=== PATIENT | female | born 1985 | race Caucasian/White ===

== ENCOUNTER 2017-11-09 16:24 | Emergency (ER) | payer OTHER ==
[2017-11-09 17:02] VITALS: BP 119/69; PULSE 81; TEMP 98.4; BMI 22.6
--- NOTE | 2017-11-09 17:04 | PDOC ---
Rapid Medical Evaluation Time Seen by Provider: 11/09/17 17:00 Medical Evaluation: Allergies Allergy/AdvReac Type Severity Reaction Status Date / Time No Known Allergies Allergy Verified 11/09/17 16:59 Vital Signs Temp Pulse Resp BP Pulse Ox 98.4 F 81 18 119/69 100 11/09/17 16:59 11/09/17 16:59 11/09/17 16:59 11/09/17 16:59 11/09/17 16:59 11/09/17 17:03 Pt presents to the ED with complaints of: left back back with mild dysuria, pt 6 weeks preg, no u/s done yet, no vag bleed, hx of renal colic On brief exam: vss, mild left cva tenderness Pt ordered for: labs, ua Pt to proceed to the ED Discharge Disposition - Diagnosis 7 weeks gestation of - Discharge Dispostion Disposition: HOME Condition at time of disposition: Stable - Referrals Referrals: STAFF,NOT ON [Primary Care Provider] - - Patient Instructions Printed Discharge Instructions: DI for Hyperemesis Gravidarum Additional Instructions: Please make sure you take your prescription medications as directed. Please follow up with your SENIOR CIVIL ENGINEER within 1 week. If your symptoms get worse or if you develop new symptoms, please return to the emergency department. Print Language: KENYAN - Post Discharge Activity
[2017-11-09 17:25] LABS: BASO % 0.5 % (0-2.0); EOS % 0.7 % (0-4.5); HEMATOCRIT 40.2 % (32.4-45.2); HEMOGLOBIN 13.8 GM/dL (10.7-15.3); LYMPH % 20.4 % (8-40); MCH 28.9 pg (25.7-33.7); MCHC 34.3 g/dl (32.0-36.0); MEAN CELL VOLUME 84.5 fl (80-96); MEAN PLT VOLUME 10.4 fl (7.5-11.1); MONO % 8.7 % (3.8-10.2); NEUT % 69.7 % (42.8-82.8); PLATELET COUNT 168 K/MM3 (134-434); RBC 4.76 M/mm3 (3.60-5.2); RDW 12.9 % (11.6-15.6); WHITE BLOOD COUNT 9.4 K/mm3 (4.0-10.0)
[2017-11-09 17:32] LABS: URINE APPEARANCE CLEAR; URINE BILIRUBIN NEGATIVE (NEGATIVE); URINE BLOOD NEGATIVE (NEGATIVE); URINE COLOR STRAW; URINE GLUCOSE (UA) NEGATIVE (NEGATIVE); URINE KETONE NEGATIVE (NEGATIVE); URINE LEUK ESTERASE NEGATIVE (NEGATIVE); URINE NITRITE NEGATIVE (NEGATIVE); URINE PROTEIN NEGATIVE (NEGATIVE); URINE UROBILINOGEN NEGATIVE mg/dL (0.2-1.0)
[2017-11-09 18:25] LABS: ALBUMIN 3.8 g/dl (3.4-5.0); ANION GAP 8 (8-16); BILIRUBIN,TOTAL 0.8 mg/dL (0.2-1.0); BLOOD UREA NITROGEN 8 mg/dL (7-18); CALCIUM 8.9 mg/dL (8.5-10.1); CHLORIDE 103 mmol/L (98-107); CO2 25 mmol/L (21-32); CREATININE 0.5 mg/dL (0.55-1.02); GLUCOSE,RANDOM 95 mg/dL (74-106); POTASSIUM 3.9 mmol/L (3.5-5.1); SGOT/AST 16 U/L (15-37); SGPT/ALT 34 U/L (12-78); SODIUM 136 mmol/L (136-145); TOT PROT 7.7 g/dl (6.4-8.2)
--- NOTE | 2017-11-09 18:33 | PDOC ---
Attending Attestation - ED Attending Attestation I have performed the following: I have examined & evaluated the patient, The case was reviewed & discussed with the resident, I agree w/resident's findings & plan, Exceptions are as noted - HPI HPI: 11/09/17 18:31 31y F present with complaint of R sided flank pain and nausea. Hx of kideny stones, was seen in urgent care and notified she is and sent to the ED to confirm IUP. no vag bleeding or abodomianl pain, no fever/chills, no vomiting, pt endorses mild nausae. LMP Sep 24 exam reveals soft nontender abdomen mild flank pain w/o cva tenderness vitals nromal will r/o uti will obtain renal US to r/o hydro and trans vag us to confirm IUP tyrlnol for pain 11/09/17 19:24 pt signed out to dr[address] valenzuela to fu with resutls - Physicial Exam PE: 11/09/17 19:24 see above - Medical Decision Making 11/09/17 19:24 see above
[2017-11-09 18:40] LABS: ALK PHOS 63 U/L (45-117)
--- NOTE | 2017-11-09 18:40 | PDOC ---
History of Present Illness - History of Present Illness Initial Comments: 11/09/17 18:39 Ms. Jules is a 31 yo w/ pmh of kidney stones who presents c/o a 3 day history of nausea, right sided flank pain, dysuria, urgency, and frequency. She went to an urgent care today and was diagnosed with a positive - sent here to confirm IUP. LMP . This is a desired . The patient denies chest pain, shortness of breath, headache and dizziness. Denies fever, chills, nausea, vomit, diarrhea and constipation. Allergies: NKDA <Endy Hatch - Last Filed: 11/09/17 18:41> <Manasa Andujar - Last Filed: 11/09/17 20:44> - General Chief Complaint: Pain Stated Complaint: PAIN Time Seen by Provider: 11/09/17 17:00 Past History - Past Medical History COPD: No GI Disorders: Yes (gastritis) Kidney Stones: Yes - Reproductive History Is Patient Now?: Yes (#): 2 Para: 1 - Suicide/Smoking/Psychosocial Hx Smoking History: Never smoked Have you smoked in the past 12 months: No Information on smoking cessation initiated: No Hx Alcohol Use: No Drug/Substance Use Hx: No Substance Use Type: None <Endy Hatch - Last Filed: 11/09/17 18:41> <Manasa Andujar - Last Filed: 11/09/17 20:44> - Past Medical History Allergies/Adverse Reactions: Allergies Allergy/AdvReac Type Severity Reaction Status Date / Time No Known Allergies Allergy Verified 11/09/17 16:59 Home Medications: Ambulatory Orders Omeprazole 20 mg PO DAILY PRN 11/09/17 Vit 93/Iron Fum/Folic [ Formula Tablet] 1 each PO DAILY Review of Systems - Review of Systems Comments:: 11/09/17 18:43 GENERAL/CONSTITUTIONAL: No fever or chills. No weakness. HEAD, EYES, EARS, NOSE AND THROAT: No change in vision. No ear pain or discharge. No sore throat. CARDIOVASCULAR: No chest pain or shortness of breath RESPIRATORY: No cough, wheezing, or hemoptysis. GASTROINTESTINAL: No nausea, vomiting, diarrhea or constipation. GENITOURINARY: Dysuria, frequency, and urgency as described with R flank pain MUSCULOSKELETAL: No joint or muscle swelling or pain. No neck or back pain. SKIN: No rash NEUROLOGIC: No headache, vertigo, loss of consciousness, or change in strength/ sensation. ENDOCRINE: No increased thirst. No abnormal weight change HEMATOLOGIC/LYMPHATIC: No anemia, easy bleeding, or history of blood clots. ALLERGIC/IMMUNOLOGIC: No hives or skin allergy. <Endy Hatch - Last Filed: 11/09/17 18:41> *Physical Exam - Vital Signs Last Vital Signs Temp Pulse Resp BP Pulse Ox 98.4 F 81 18 119/69 100 11/09/17 16:59 11/09/17 16:59 11/09/17 16:59 11/09/17 16:59 11/09/17 16:59 - Physical Exam Comments: 11/09/17 18:44 GENERAL: Awake, alert, and fully oriented, in no acute distress HEAD: No signs of trauma, normocephalic, atraumatic EYES: PERRLA, EOMI, sclera anicteric, conjunctiva clear ENT: Auricles normal inspection, hearing grossly normal, nares patent, oropharynx clear without exudates. Moist mucosa NECK: Normal ROM, supple, no lymphadenopathy, JVD, or masses LUNGS: No distress, speaks full sentences, clear to auscultation bilaterally HEART: Regular rate and rhythm, normal S1 and S2, no murmurs, rubs or gallops, peripheral pulses normal and equal bilaterally. ABDOMEN: Soft, nontender, normoactive bowel sounds. No guarding, no rebound. No masses EXTREMITIES: Normal inspection, Normal range of motion, no edema. No clubbing or cyanosis. NEUROLOGICAL: Cranial nerves II through XII grossly intact. Normal speech, normal gait, no focal sensorimotor deficits SKIN: Warm, Dry, normal turgor, no rashes or lesions noted. <Endy Hatch - Last Filed: 11/09/17 18:41> - Vital Signs Last Vital Signs Temp Pulse Resp BP Pulse Ox 98.4 F 81 18 119/69 100 11/09/17 16:59 11/09/17 16:59 11/09/17 16:59 11/09/17 16:59 11/09/17 16:59 <Manasa Andujar - Last Filed: 11/09/17 20:44> ED Treatment Course - LABORATORY CBC & Chemistry Diagram: 11/09/17 17:10 11/09/17 17:10 - ADDITIONAL ORDERS Additional order review: Laboratory Results 11/09/17 11/09/17 17:10 17:10 Sodium 136 Potassium 3.9 Chloride 103 Carbon Dioxide 25 Anion Gap 8 BUN 8 D Creatinine 0.5 L Creat Clearance w eGFR > 60 Random Glucose 95 Calcium 8.9 Total Bilirubin 0.8 D AST 16 ALT 34 D Total Protein 7.7 Albumin 3.8 Urine Color Straw Urine Appearance Clear Urine pH 5.0 Ur Specific [place] 1.008 Urine Protein Negative Urine Glucose (UA) Negative Urine Ketones Negative Urine Blood Negative Urine Nitrite Negative Urine Bilirubin Negative Urine Urobilinogen Negative Ur Leukocyte Esterase Negative 11/09/17 17:10 RBC 4.76 MCV 84.5 MCHC 34.3 RDW 12.9 MPV 10.4 Neutrophils % 69.7 Lymphocytes % 20.4 D Monocytes % 8.7 Eosinophils % 0.7 D Basophils % 0.5 D <Endy Hatch - Last Filed: 11/09/17 18:41> - LABORATORY CBC & Chemistry Diagram: 11/09/17 17:10 11/09/17 17:10 - ADDITIONAL ORDERS Additional order review: Laboratory Results 11/09/17 11/09/17 17:10 17:10 Sodium 136 Potassium 3.9 Chloride 103 Carbon Dioxide 25 Anion Gap 8 BUN 8 D Creatinine 0.5 L Creat Clearance w eGFR > 60 Random Glucose 95 Calcium 8.9 Total Bilirubin 0.8 D AST 16 ALT 34 D Alkaline Phosphatase 63 Total Protein 7.7 Albumin 3.8 Beta HCG, Quant 95079.8 Urine Color Straw Urine Appearance Clear Urine pH 5.0 Ur Specific [place] 1.008 Urine Protein Negative Urine Glucose (UA) Negative Urine Ketones Negative Urine Blood Negative Urine Nitrite Negative Urine Bilirubin Negative Urine Urobilinogen Negative Ur Leukocyte Esterase Negative 11/09/17 17:10 RBC 4.76 MCV 84.5 MCHC 34.3 RDW 12.9 MPV 10.4 Neutrophils % 69.7 Lymphocytes % 20.4 D Monocytes % 8.7 Eosinophils % 0.7 D Basophils % 0.5 D - Medications Given in the ED: ED Medications Discontinued Medications Generic Name Dose Route Start Last Admin Trade Name Freq PRN Reason Stop Dose Admin Acetaminophen 650 mg 11/09/17 18:48 11/09/17 19:59 Tylenol - PO 11/09/17 18:49 650 mg ONCE ONE Administration <Manasa Andujar - Last Filed: 11/09/17 20:44> Medical Decision Making - Medical Decision Making 11/09/17 18:45 Patient presents for confirmation of IUP. Transvaginal US ordered. 11/09/17 19:04 Patient signed out to Dr. Benítez for further care. <Endy Hatch - Last Filed: 11/09/17 18:41> *DC/Admit/Observation/Transfer <Endy Hatch - Last Filed: 11/09/17 18:41> - Discharge Dispostion Admit: No <Manasa Andujar - Last Filed: 11/09/17 20:44> Diagnosis at time of Disposition: 7 weeks gestation of - Discharge Dispostion Disposition: HOME Condition at time of disposition: Stable - Referrals Referrals: STAFF,NOT ON [Primary Care Provider] - - Patient Instructions Printed Discharge Instructions: DI for Hyperemesis Gravidarum - Post Discharge Activity
[2017-11-09] MEDS ORDERED: ACETAMINOPHEN 325 MG TABLET (FP) PO ONE (18:48)
[2017-11-09] MEDS ORDERED: ACETAMINOPHEN 325 MG TABLET (FP) ONE ×2 (19:00→19:01)
--- NOTE | 2017-11-09 20:58 | PDOC ---
History of Present Illness - General Chief Complaint: Pain Stated Complaint: PAIN Time Seen by Provider: 11/09/17 17:00 Past History - Past Medical History Allergies/Adverse Reactions: Allergies Allergy/AdvReac Type Severity Reaction Status Date / Time No Known Allergies Allergy Verified 11/09/17 16:59 Home Medications: Ambulatory Orders Omeprazole 20 mg PO DAILY PRN 11/09/17 Vit 93/Iron Fum/Folic [ Formula Tablet] 1 each PO DAILY COPD: No GI Disorders: Yes (gastritis) Kidney Stones: Yes - Reproductive History Is Patient Now?: Yes (#): 2 Para: 1 - Suicide/Smoking/Psychosocial Hx Smoking History: Never smoked Have you smoked in the past 12 months: No Information on smoking cessation initiated: No Hx Alcohol Use: No Drug/Substance Use Hx: No Substance Use Type: None *Physical Exam - Vital Signs Last Vital Signs Temp Pulse Resp BP Pulse Ox 98.4 F 81 18 119/69 100 11/09/17 16:59 11/09/17 16:59 11/09/17 16:59 11/09/17 16:59 11/09/17 16:59 ED Treatment Course - LABORATORY CBC & Chemistry Diagram: 11/09/17 17:10 11/09/17 17:10 - ADDITIONAL ORDERS Additional order review: Laboratory Results 11/09/17 11/09/17 17:10 17:10 Sodium 136 Potassium 3.9 Chloride 103 Carbon Dioxide 25 Anion Gap 8 BUN 8 D Creatinine 0.5 L Creat Clearance w eGFR > 60 Random Glucose 95 Calcium 8.9 Total Bilirubin 0.8 D AST 16 ALT 34 D Alkaline Phosphatase 63 Total Protein 7.7 Albumin 3.8 Beta HCG, Quant 07517.8 Urine Color Straw Urine Appearance Clear Urine pH 5.0 Ur Specific [place] 1.008 Urine Protein Negative Urine Glucose (UA) Negative Urine Ketones Negative Urine Blood Negative Urine Nitrite Negative Urine Bilirubin Negative Urine Urobilinogen Negative Ur Leukocyte Esterase Negative 11/09/17 17:10 RBC 4.76 MCV 84.5 MCHC 34.3 RDW 12.9 MPV 10.4 Neutrophils % 69.7 Lymphocytes % 20.4 D Monocytes % 8.7 Eosinophils % 0.7 D Basophils % 0.5 D - Medications Given in the ED: ED Medications Discontinued Medications Generic Name Dose Route Start Last Admin Trade Name Freq PRN Reason Stop Dose Admin Acetaminophen 650 mg 11/09/17 18:48 11/09/17 19:59 Tylenol - PO 11/09/17 18:49 650 mg ONCE ONE Administration Medical Decision Making - Medical Decision Making 11/09/17 20:05 Pt signed out by day team. Pt is a 31 F w/ nausea, urgency, and pos test. Ongoing plan to r/o ectopic. Pt currently in U/S. 11/09/17 20:58 U/S confirms live IUP. Kidneys unremarkable. Pt stable for discharge with instructions to follow up with [facility] OPERATOR. *DC/Admit/Observation/Transfer Diagnosis at time of Disposition: 7 weeks gestation of - Discharge Dispostion Disposition: HOME Admit: No - Referrals Referrals: STAFF,NOT ON [Primary Care Provider] - - Patient Instructions Printed Discharge Instructions: DI for Hyperemesis Gravidarum Additional Instructions: Please make sure you take your prescription medications as directed. Please follow up with your [facility] BRUS[facility] OPERATOR within 1 week. If your symptoms get worse or if you develop new symptoms, please return to the emergency department. Print Language: TOGOLESE - Post Discharge Activity
== END 2017-11-09 20:54 | disposition home or self-care (01) ==
LOC: JER 16:24
DX: O26.891 Other specified pregnancy related conditions, first trimester (principal); O21.0 Mild hyperemesis gravidarum; Z3A.01 Less than 8 weeks gestation of pregnancy; Z87.442 Personal history of urinary calculi
CPT/HCPCS: 36415; 76775-TC; 76817-TC; 80053; 81003; 84702; 85025; 87077; 87086; 99282-25